=== PATIENT | female | born 1995 | race Caucasian/White ===

== ENCOUNTER 2024-03-14 13:15 | Outpatient (RCR) | payer OTHER, SELFPAY ==
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
--- NOTE | 2024-05-02 13:57 | HP.PTDCNRP_ITS ---
Patient Information Patient Information: ZIGGY RDZ was seen in my office for initial evaluation on 03/14/24. The following Plan of Care was established for this patient: POC Established Initial Frequency: 1x/Week Initial Duration: 2-4 Months Anticipated Interventions Patient/Client Instruction: Educate patient on: Condition, Plan of Care and Risk Factors For the Purpose of:: To improve self management Therapeutic Exercise to Include: Strength training, Endurance training, Coordination and Flexibilty training For the Purpose of:: To improve muscle performance and motor function, To increase flexibility/ROM and To improve endurance Last Seen Last Seen: This patient was last seen in our office 03/14/24. Pertinent comments regarding their Physical therapy will appear below: This patient was seen for an initial Physical Therapy Evaluation on 03/14/24. I received a message stating patient called and cancelled all follow up visits stating therapy just isn't in the budget right now and she will call back to re- schedule when able. At this point I will be discontinuing this patient from physical therapy. I would be happy to see this patient again in the future if found appropriate by the physician. Thank you! Sherry Restrepo, PT, Cert MDT
== END 2024-03-14 19:00 | disposition home or self-care (01) ==
LOC: PT 13:15
PROVIDERS: PCP Family Medicine; Referring Provider Urology; Visit Provider Urology
DX: R32 Unspecified urinary incontinence (principal); N32.81 Overactive bladder
CPT/HCPCS: 97162